=== PATIENT | male | born 1980 | race Caucasian/White ===

== ENCOUNTER 2021-06-30 20:20 | Emergency (ER) | payer BC ==
[~2021-06-30] VITALS: Ht 194.3 cm; Wt 89.8 kg
[2021-06-30] MEDS ORDERED: IBUPROFEN 400 MG TAB PO STA (20:44)
[2021-06-30] MEDS ORDERED: KETOROLAC TROMETHAMINE 60 MG/2 ML VIAL IM ONE (21:00)
[2021-06-30] MEDS ORDERED: KETOROLAC TROMETHAMINE 60 MG/2 ML VIAL ONE (21:09)
[2021-06-30] MEDS ORDERED: CYCLOBENZAPRINE HCL 10 MG TAB PO ONE (21:30)
[2021-06-30] MEDS ORDERED: CYCLOBENZAPRINE HCL 10 MG TAB ONE (21:34)
[2021-06-30] MEDS ORDERED: HYDROCODON-ACE1 EA12 PO (22:09)
[2021-06-30] MEDS ORDERED: CYCLOBENZAPRINE10 MG PO (22:12)
[2021-06-30] MEDS ORDERED: IBUPROFEN800 MG PO (22:13)
[2021-06-30] MEDS ORDERED: HYDROCODONE/APAP 5MG-325MG TAB PO ONE (22:15)
[2021-06-30] MEDS ORDERED: HYDROCODONE/APAP 5MG-325MG TAB ONE (22:25)
[2021-06-30 22:30] VITALS: BP 134/80
== END 2021-06-30 22:30 | disposition home or self-care (01) ==
LOC: FSED 20:40
DX: S22.41XA Multiple fractures of ribs, right side, initial encounter for closed fracture (principal); W17.89XA Other fall from one level to another, initial encounter; F98.8 Other specified behavioral and emotional disorders with onset usually occurring in childhood and adolescence; Z72.89 Other problems related to lifestyle
CPT/HCPCS: 71101; 96372; 99283; J1885